=== PATIENT | male | born 1955 ===

== ENCOUNTER → 2019-09-11 13:42 | Outpatient (CLI) | payer BC, SELFPAY ==
--- NOTE | ~2019-09-11 | MR_ITS ---
EXAMINATION: MR brain/brain stem wo/w con EXAM DATE: 09/11/2019 15:05 INDICATION: Tremors, bilateral hand and arm. Symptoms for one year progressing. TECHNIQUE: Magnetic resonance imaging (MRI) of the brain/brain stem obtained without contrast. Sagit tono T1, axial diffusion, gradient echo (T2*), T1, T2, FLAIR sequences obtained. Patient was then inj ected with 17 cc intravenous Multihance contrast. Axial and coronal postcontrast T1 weighted sequence s obtained. There is no prior study for comparison. FINDINGS: There are no areas of restricted diffusion to suggest acute infarction. There is no acute hemorrhage seen on the T2*, a hemosiderin sensitive sequence. Some scattered white matter subcortical and periventricular hyperintensities, nonspecific but most likely mild microangiopathy. No intrapare nchymal brain mass. The ventricles are normal in size. There are no extra-axial collections. Flow v oids are seen in the cerebral arteries on the T2-weighted sequences consistent with their expected pa tency. The orbits are unremarkable. Soft tissue is unremarkable. There are no areas of abnormal e nhancement on the postcontrast images. Mild to moderate ethmoid mucoperiosteal thickening. IMPRESSION: 1. Mild scattered white matter hyperintensities most likely microangiopathy. 2. Mild to moderate ethmoid mucoperiosteal thickening. Reviewed, dictated and finalized at location B. NSED MASSAGE THERAPIST
--- NOTE | ~2019-09-11 | MR_ITS ---
EXAMINATION: MR cervical spine wo/w con EXAM DATE: 09/11/2019 15:05 INDICATION: Tremor in hands, arms. TECHNIQUE: Multi-sequential, multiplanar MR images of the cervical spine were obtained without contra st. Axial T2, axial T2 MERGE sequence. Sagittal T1, T2, T2 fat saturation images also obtained. Axi al T1 weighted sequence. Patient was then injected with 17 mL Multihance intravenous contrast and re imaged. Postcontrast axial and sagittal T1-weighted fat saturation sequences were obtained. Compar ruthie is made to prior examination from 06/07/2018. FINDINGS: Mild loss of the disc heights C5-C7. The vertebral body and disc heights are otherwise wel l maintained. The vertebral bodies are aligned in the AP dimension. There are hemangiomas and T1 and T2. No suspicious marrow signal abnormalities. The spinal cord signal intensity and intrinsic morphol ogy is normal. Cervicomedullary junction is normal in appearance. Paraspinal soft tissue is unremarka ble. Level by level evaluation: C2-C3: Disc does not extend beyond the endplate margin. Uncovertebral joint arthropathy: Mild left. Facet joint arthropathy: Mild bilateral. Neural foraminal stenosis: No stenosis. Central canal stenosis: No stenosis. C3-C4: Disc does not extend beyond the endplate margin. Uncovertebral joint arthropathy: Mild to moderate left, mild right. Facet joint arthropathy: Mild to moderate bilateral. Neural foraminal stenosis: Mild left. Central canal stenosis: No stenosis. C4-C5: Disc does not extend beyond the endplate margin. Uncovertebral joint arthropathy: Mild to moderate left, mild right. Facet joint arthropathy: Mild to moderate bilateral. Neural foraminal stenosis: No stenosis. Central canal stenosis: No stenosis. C5-C6: There is a minimal diffuse disc bulge. Uncovertebral joint arthropathy: Mild to moderate bilateral. Facet joint arthropathy: Mild to moderate bilateral. Neural foraminal stenosis: Minimal left. Central canal stenosis: No stenosis. C6-C7: There is a mild diffuse disc bulge. Uncovertebral joint arthropathy: Moderate to severe right, moderate left. Facet joint arthropathy: Mild to moderate bilateral. Neural foraminal stenosis: Moderate right, no left. Central canal stenosis: Minimal. C7-T1: Disc does not extend beyond the endplate margin. Uncovertebral joint arthropathy: Mild bilateral. Facet joint arthropathy: Mild to moderate bilateral. Neural foraminal stenosis: No stenosis. Central canal stenosis: No stenosis. Compared to previous examination, difficult to identify any significant interval change. IMPRESSION: 1. C6-7 moderate right neural foraminal stenosis, less at other levels. 2. Normal cord signal. Reviewed, dictated and finalized at location B. UNITY ENGAGEMENT COORDINATOR
[2019-09-11 14:25] LABS: Blood Urea Nitrogen 10 mg/dL (8-26); Estimated Glomerular Filt Rate > 60
== END ==
PROVIDERS: PCP Family Medicine; Visit Provider Family Medicine
DX: R25.1 Tremor, unspecified (principal); R93.0 Abnormal findings on diagnostic imaging of skull and head, not elsewhere classified
CPT/HCPCS: 70553; 72156; A9577